=== PATIENT | female | born 1985 ===

== ENCOUNTER 2016-09-28 16:42 | Emergency (ER) | payer MEDICARE, MEDICAID ==
--- NOTE | 2016-09-28 17:08 | ERNOTE ---
Headache ER HPI - Narrative Date of Service: 09/28/16 - General Presenting Symptoms: headache Time Seen by Provider: 09/28/16 17:10 Source: patient Exam Limitations: no limitations - Immun/Allergies/Home Medications Immunizations: IMMUNIZATION HX Immunizations Up to Date Yes History of Influenza Vaccine No Hx Pneumococcal Vaccination No Allergies/Adverse Reactions: Allergies No Known Allergies Allergy (Unverified 09/28/16 16:51) - Pain Pain Score: 7 - History of Present Illness Narrative: 31-year-old female presents to the emergency room for vision changes. Patient states at the outside revision appears dark in the middle of her vision is fuzzy. She is able to make out shapes and objects and faces but they are not very clear. 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 She is worried that the shunt has malfunctioned. She states that this started about 4:00. Date (Duration): 09/28/16 Timing of Headache: abrupt Context Headache: Present: new onset. Absent: recent head injury < 24 hrs ago Quality: Present: sharp Severity Maximum: Present: mild Severity-Currently: Present: mild Headache frequency: Present: no recent headache Modifying Factors - (Improves): Reports: exposure to light Associated Symptoms: Reports: nausea, weakness, vision changes, dizziness Exacerbated by:: Reports: light, noise, movement, position Prior Treament: Reports: similar symptoms before Review of Systems - Review of Systems Constitutional: Present: See HPI EYE: Present: see HPI, blurred vision, vision changes ENT: Present: no symptoms reported Respiratory: Present: no symptoms reported Cardiology: Present: no symptoms reported Gastrointestinal/Abdominal: Present: no symptoms reported Genitourinary: Present: no symptoms reported Musculoskeletal: Present: no symptoms reported Skin: Present: no symptoms reported Neurological: Present: See HPI, headache, dizziness/light-headedness Endocrine: Present: no symptoms reported Hematologic/Lymphatic: Present: no symptoms reported Psych: Present: no symptoms reported All Other Systems: All systems neg except as marked - Patient's Past Medical History Patient History - Medical: Other Additional info: patient has a hx of idopathic ICP. she has a hx of a Shunt to the right side of her head Patient History - Cardiac/Respiratory: Other Patient History - Cancer: No Hx of Cancer Patient History - Surgical Procedures: Cholecystectomy, T & A, Other, Hernia Repair Patient History - Other: None LMP (females 10-50): other - Social History Living Situations: home Psych History: No pertinent hx - Immunizations Immunizations Up to Date: Yes Hx Pneumococcal Vaccination: No History of Influenza Vaccine: No Physical Exam - Physical Exam Narrative: patient has vision changes. she states that she suddenly had loss of vision at 4 :00 today and then it started to return or she was seeing "potatoes" patient states that the outside of her vision is still dark and black.The middle of her vision is very fuzzy and unclear. she has extreme photophobia. It is also complaining of dizziness. Patient states that her headache increases when she lays flat. General Appearance: Present: wd/wn, alert, no apparent distress Head Exam: Present: normal inspection, no evidence of injury Eye Exam: Normal inspection: bilateral Ears, Nose, Throat: Present: normal ENT inspection Neck: Present: normal inspection, nontender Respiratory: Present: no respiratory distress, normal breath sounds, lungs clear Cardiovascular/Chest: Present: regular rate, rhythm, no murmur, normal peripheral pulses Gastrointestinal/Abdominal: Present: normal bowel sounds, nontender, nondistended, soft Back Exam: Present: normal inspection Extremity Exam: Present: normal inspection, non-tender, normal range of motion, no edema Neurological Exam: Present: alert, oriented. Absent: facial droop, motor weakness Skin Exam: Present: normal color, warm/dry Lymphatic Exam: Present: no adenopathy ED Progress - Results and Orders Patient's Lab Results:: I have reviewed the patient's lab results. Results and Orders: elevated WBC - Vital Signs Patient's Vital Signs:: I have reviewed the patient's vital signs. Vital Signs: Vital Signs 09/28/16 09/28/16 16:46 16:58 Temperature 37.2 C Pulse Rate 70 65 Respiratory 16 17 Rate Blood Pressure 148/84 146/91 O2 Sat by Pulse 74 L 96 Oximetry - EKG EKG read: Reviewed by me EKG Comments: NSR per ED Attending - X-Ray X-Ray #1 X-Ray: shunt series Interpretation: Reviewed by me X-ray Comments: X-RAY REPORT RAD/Abdomen KUB *; 48 RAD/Chest Single View *; 50 RAD/Skull Less Than 4 Views; RAD/Cervical AP LAT Exam Date: 09/28/2016 17:57 Ordering Physician: Bandar Wilkins History:Shunt series. Additional history provided by the technologist: Patient with a [employer] shunt placed in 2004 at [facility]. Vision changes. Pain behind both eyes, pressure in head. Vision changes. Sensitivity to noise and light x2 days. Worsening. Technique: 1. Lateral skull image (1 view) 2. Cervical spine series to include frontal and lateral projections (2 views) 3. AP chest series (1 view) 4. Abdominal series (3 views) Comparison: None. Findings: Lateral skull image: The shunt catheter tubing appears intact. Cervical spine series: The shunt catheter tubing appears intact. Osseous structures appear to be intact. AP chest series: The shunt catheter tubing appears intact. The lungs appear clear. Heart and mediastinal contours appear normal. The pulmonary vasculature is unremarkable. Osseous structures appear to be intact. Abdominal series: Shunt catheter tubing appears to be intact with the tip of the tubing coursing into the left pelvis and crossing midline and terminating at the level of the right iliac bone. A IUD is superimposed over the pelvis. Nonproductive bowel gas pattern with scattered stool retention. No free air. No obvious urolithiasis. Surgical clips are superimposed over the right upper quadrant. No acute osseous findings Impression: Shunt catheter tubing appears to be intact. Additional findings and comments are as above. Electronically signed by Murphy Timmons D.O.. Murphy Timmons DO Dict: 09/28/161808 Typed: 09/28/161808/ - CT/Ultrasound CT/Ultrasound Narrative: NAME: OMAYRA SANTOS : 1985 MR #: [id number] CC: Bandar DAVIS; Phuc Keenan MD LOC: [facility] DATE: X-RAY REPORT [id number] CT/CT Head W/O * Exam Date: 09/28/2016 17:56 Ordering Physician: Bandar Wilkins History: Vision changes. Additional history provided by the technologist: Pain behind both eyes, pressure in head. Vision changes. Sensitivity to noise and light x2 days. Worsening. History of [employer] shunt placement in 2004 at [facility]. Technique: Continuous unenhanced axial CT images were acquired through the brain according to standard protocol. Comparison: No prior study available. Findings: CT Head W/O *: The sulci, ventricles, and CSF- containing spaces are age-appropriate. No evidence of ventriculomegaly. There is a right frontal [employer] shunt catheter in place with the tip of the catheter terminating at the level of the right lateral ventricle, in the region of the foramen of Monro. No evidence of ventriculomegaly. The right lateral ventricle appears to be collapsed. There is asymmetric enlargement of the left lateral ventricle, which still appears to be within normal limits. No acute intracranial hemorrhage. No midline shift or herniation. A left middle cranial fossa extra-axial fluid density structure is seen, which likely represents a arachnoid cyst , measuring approximately 3.7 cm x 1.9 cm. The cortical hernandez/white matter differentiation is grossly intact. Benign intracranial calcifications noted. There is minimal ethmoid air cell mucosal thickening. The remaining visualized pneumatized portions of the skull are clear. No depressed calvarial fractures. [employer] shunt catheter tubing noted in the right lateral scalp. The orbits appear symmetric. IMPRESSION: No acute intracranial hemorrhage. Right frontal [employer] shunt catheter in place with suggestion of a collapsed appearance of the right lateral ventricle; correlate with prior imaging to assess for interval change. Additional findings and comments are as above. Electronically signed by Murphy Timmons D.O.. Murphy Timmons DO Dict: 09/28/161801 Typed: 09/28/161801/ - Progress/Reassessment Chief Complaint: Headache Progress:: Unchanged Plan - Plan Plan: Spoke with on-call neurologist and he agrees the patient needs to be transferred. Patient is to be transferred to [place] at the [facility]. Dr. Mook Christiansen is the on-call neurologist who agrees to take her care. She will be transferred directly to the ER. Dr. Prado is the emergency room attending and agreed to accept her. Departure Clinical Impression: Intracranial shunt - Departure Disposition: [facility] Condition: Serious Referrals: Phuc Keenan MD [Primary Care Provider] -
--- OUTSIDE RECORDS SUMMARY | 2016-09-28 17:30 | XMS REPORT | Clinical Summary ---
:1985 Author Organization [facility] [place] [address] Care Team Providers Name Role Phone Unavailable Primary Care Provider Unavailable Source Comments This disclosure is being made pursuant to the [employer] program and maynot contain all information available regarding this patient.[facility] Allergies Active Allergy Reactions Severity Noted Date Comments Morphine Itching Low 11/29/2015 Current Medications Be aware that medications may not be up to date as of this document. Alwaysverify current medications with the patient. Prescription Sig. Disp. Refills Start Date End Date Status venlafaxine (EFFEXOR) Take 50 mg by Active 50 MG tablet mouth 2 (two) times daily. gabapentin (NEURONTIN) Take 200 mg by Active 100 MG capsule mouth 2 (two) times daily. QUEtiapine Fumarate Take 100 mg by Active (SEROQUEL) 100 MG mouth 2 (two) tablet times daily. furosemide (LASIX) 20 Take 20 mg by Active MG tablet mouth 2 (two) times daily. B Complex Vitamins Take by mouth. Active (B-COMPLEX/B-12 PO) ibuprofen Take 800 mg by Active (ADVIL,MOTRIN) 800 MG mouth every 6 tablet (six) hours as needed for Pain. naproxen (NAPROSYN) 250 Take 250 mg by Active MG tablet mouth 2 (two) times daily with meals. Ultbgew-Omoljlevutasg-W Take by mouth. Active affeine (HEADACHE RELIEF PO) ketorolac (TORADOL) 10 Take 1 tablet by 20 tablet 0 11/29/2015 Active MG tablet mouth every 6 (six) hours as needed for Pain. Active Problems Not on file Social History Tobacco Use Types Packs/Day Years Used Date Current Every Day Smoker Cigarettes 1 Tobacco Cessation:Ready to Quit: Yes Alcohol Use Drinks/Week oz/Week Comments Yes occasionally Sex Assigned at Date Recorded Not on file Last Filed Vital Signs Vital Sign Reading Time Taken Blood Pressure 158/81 11/29/2015 4:39 PM CDT Pulse 68 11/29/2015 4:39 PM CDT Temperature 35.9 C (96.7 F) 11/29/2015 4:39 PM CDT Respiratory Rate 18 11/29/2015 4:39 PM CDT Oxygen Saturation 97% 11/29/2015 4:39 PM CDT Inhaled Oxygen Concentration - - Weight 139.3 kg (307 lb 1.6 oz) 11/29/2015 4:39 PM CDT Height 165.1 cm (5' 5") 11/29/2015 4:39 PM CDT Body Mass Index 51.1 11/29/2015 4:39 PM CDT Plan of Treatment Health Maintenance Due Date Last Done Comments Tetanus/Pertussis (1 - Tdap) 06/15/2002 Pap Smear 06/15/2004 INFLUENZA IMMUNIZATION (#1) 2015 Results Not on filefrom Last 3 Months Insurance Payer Benefit Plan / Group Subscriber ID Type Phone Address MEDICARE MEDICARE A AND B [id number] [address] [place] [address] MEDICAID MEDICAID [place] [id number] [address] [place]z [id number] Home: [address] [phone] [place], [place] [id number]
[2016-09-28 17:33] LABS: Hematocrit 45.1 % (37.0-47.0); Hemoglobin 15.5 gm/dL (12.5-16.0); Mean Cell Volume 87.7 fl (78-100); Mean Corpuscular Hemoglobin 30.2 pg (27-31); Mean Corpuscular Hgb Conc 34.4 g/dl (32-36); Mean Platelet Volume 11.4 fl (6.0-9.5); Platelet Count 342 K/mm3 (150-450); Red Blood Count 5.14 M/mm3 (4.2-5.4); White Blood Count 18.9 K/mm3 (4.0-10.5)
[2016-09-28 17:35] LABS: Total Cells Counted 100
[2016-09-28 17:55] LABS: Albumin * 3.6 gm/dl (3.4-5.0); Anion Gap 14.8 mmol/L (6.8-13.8); BUN/Creatinine Ratio 11.3 (9.0-21.6); Bilirubin, Total 0.4 mg/dL (0.0-1.1); Ca. Corrected For Albumin 8.7 mg/dL (8.4-10.2); Calcium * 8.7 mg/dL (7.9-10.9); Carbon Dioxide 25.2 mmol/L (24-32.6); Total Protein 7.3 gm/dL (6.2-8.2)
[2016-09-28 17:57] LABS: Atypical (Reactive) Lymph 3 % (0-2); Band 1 % (0-2.0); Eosinophil 1 % (0-3); Lymphocyte 28 % (20-51); Monocyte 6 % (0-9); Neutrophil 61 % (42-75); Neutrophil # 11.5 K/mm3 (1.3-6.0)
[2016-09-28 17:59] LABS: Dohle Bodies 2+; Platelet Estimate Normal (NORMAL); RBC Morphology Normal (NORMAL); Toxic Granulation 1+
[2016-09-28 18:16] LABS: Urine Bilirubin Negative (NEGATIVE); Urine Blood 25 /ul (NEGATIVE); Urine Ketone Negative (NEGATIVE); Urine Nitrite Negative (NEGATIVE); Urine Protein Negative (NEGATIVE); Urine Specific Gravity >=1.030 SP.GR. (1.005-1.010); Urine Urobilinogen Normal (NORMAL)
[2016-09-28 18:30] LABS: Urine Appearance Clear; Urine Bacteria TRACE; Urine Color Yellow; Urine RBC None Seen /hpf (0-5); Urine WBC TRACE /hpf (0-5)
[2016-09-28 18:55] VITALS: BP 126/74
== END 2016-09-28 19:07 | disposition short-term general hospital (02) ==
LOC: ER 16:42
DX: H53.8 Other visual disturbances (principal); R51 Headache; Z98.2 Presence of cerebrospinal fluid drainage device

== ENCOUNTER 2017-01-11 07:25 | Day surgery (SDC) | payer MEDICARE, MEDICAID ==
[~2017-01-11 07:25] MED LIST: RINGER'S SOLUTION,LACTATED 1,000 ML IV PRN
[2017-01-11] MEDS ORDERED: RINGER'S SOLUTION,LACTATED 1,000 ML IV ONE (08:26)
[2017-01-11] MEDS ORDERED: diphenhydrAMINE HCL 50 MG/ML VIAL IV PRN (09:08)
[2017-01-11] MEDS ORDERED: NALOXONE HCL 0.4 MG/ML VIAL IV PRN (09:08)
[2017-01-11] MEDS ORDERED: PROMETHAZINE HCL 12.5 MG in DEXTROSE 5 % IN WATER 50 ML IV PRN ×2 (09:08)
[2017-01-11] MEDS ORDERED: ONDANSETRON HCL/PF 2 MG/ML VIAL IV PRN (09:08)
[2017-01-11] MEDS ORDERED: HYDROmorphone HCL 2 MG/ML VIAL IV PRN (09:08)
[2017-01-11] MEDS ORDERED: LIDOCAINE HCL/EPINEPHRINE 50 ML VIAL IJ ONE ×2 (09:30)
--- NOTE | 2017-01-11 10:32 | OR ---
Operative Report - Dictated Report Narrative: DATE OF PROCEDURE: 01/11/2017 INDICATION: 31 year old female desires permanent sterilization by removal of both fallopian tubes PREOPERATIVE DIAGNOSIS: Multiparity, desires permanent sterilization POSTOPERATIVE DIAGNOSIS: Multiparity, desires permanent sterilization OPERATION: Laparoscopic bilateral salpingectomy SURGEON: Chepe Curran D.O. NARCOTICS AND/OR VICE DETECTIVE: None ANESTHESIA: General ESTIMATED BLOOD LOSS: Minimal FLUID REPLACEMENT: 600 mL URINE OUTPUT: Not measured FINDINGS: Normal uterus, tubes, and ovaries. Large amount of peritoneal fluid within the abdominal cavity, peritoneal shunt SPECIMEN(S): Fallopian tubes DRAINS: none TECHNIQUE: The patient was taken to the operating room and placed in dorsal lithotomy position after adequate general anesthesia was obtained. The anterior lip of the cervix was grasped with a long Allis clamp and a uterine manipulator was inserted into the cervical canal and attached to the Allis clamps as a means to manipulate the uterus. Bladder was drained prior to patient entering the OR. Gloves were changed and attention was turned to the abdomen where the umbilicus and suprapubic region were injected with a 1% lidocaine epinephrine was solution. A scalpel was used to score the skin and a 12 mm non-bladed trocar was inserted via direct technique under direct visualization. Pneumoperitoneum was created with CO2 gas. A 5 mm non-bladed trocar was inserted suprapubically in a similar fashion. Through these 2 ports the surgery was carried out with findings as noted above. The right fallopian tube was identified and followed out to the fimbriated end. The fallopian tube was coagulated with the Kleppinger's approximately 2 cm from the cornual region and along the mesosalpinx. The tube was then excised with laparoscopic scissors and removed through the 12 mm port. The exact same was done on the patient's left side. The CO2 gas was removed from the abdominal cavity. Trochars were removed under direct visualization. The fascia of the 12 mm port was closed with a single 0 Vicryl suture. The skin of both incisions was closed with 4-0 Monocryl. Instruments were removed from the cervix and vagina. Sponge, lap, instrument, and needle count were correct x 2. DISPOSITION: The patient was awakened and transferred to post anesthesia care unit in good condition.
[2017-01-11 12:25] VITALS: BP 137/77
== END 2017-01-11 07:26 | disposition home or self-care (01) ==
LOC: AMB 07:25
PROVIDERS: ATTEND Obstetrics & Gynecology
PROC: 0UB74ZZ Excision of Bilateral Fallopian Tubes, Percutaneous Endoscopic Approach (ICD-10-PCS; principal; 2017-01-11 09:15)
DX: Z30.2 Encounter for sterilization (principal); E78.00 Pure hypercholesterolemia, unspecified; K58.9 Irritable bowel syndrome, unspecified; E66.9 Obesity, unspecified; Z68.41 Body mass index [BMI] 40.0-44.9, adult